=== PATIENT | female | born 1935 | race Caucasian/White ===

== ENCOUNTER 2017-04-28 00:44 | Emergency (ER) | payer MEDICARE ==
[2017-04-28] MEDS ORDERED: Fluorescein Opthalmic Strip ONE (01:37)
[2017-04-28 02:07] LABS: Band 1 % (5-11); Hemoglobin 14.8 g/dL (12.0-16.0); Lymphocytes 41 % (21-51); MDiff Complete? YES; Mean Corpuscular HGB CONC 33.5 g/dL (32.0-36.0); Mean Corpuscular Hemoglobin 32.1 pg (27.0-31.0); Mean Corpuscular Volume 95.8 fl (81.0-99.0); Mean Platelet Volume 7.9 fL (7.4-10.4); Monocytes 5 % (0-10); Neutrophil 52 % (42-75); PLT Morphology Comment Appears Adequate; Platelet Count 130 thou/uL (130-400); RBC Distribution Width 13.4 % (11.5-14.5); Red Blood Cell (RBC) Count 4.61 mill/uL (4.20-5.40); White Blood Cell (WBC) Count 6.6 thou/uL (4.8-10.8)
[2017-04-28 02:09] LABS: ALT (SGPT) 14 U/L (8-55); AST (SGOT) 30 U/L (5-34); Albumin 3.7 g/dL (3.4-4.8); Alkaline Phosphatase 55 U/L (40-150); Anion Gap 14 mmol/L (10-20); BUN (Urea Nitrogen) 28 mg/dL (9.8-20.1); Bilirubin, Total 0.5 mg/dL (0.2-1.2); CK (CPK) 41 U/L (29-168); Calc. Creatinine Clearance 0 mL/min (70-130); Calcium 9.2 mg/dL (7.8-10.44); Carbon Dioxide 24 mmol/L (23-31); Chloride 100 mmol/L (98-107); Estimated GFR-MDRD 27; Globulin 3.1 g/dL (2.4-3.5); Glucose 126 mg/dL (83-110); Potassium 4.2 mmol/L (3.5-5.1); Protein, Total 6.8 g/dL (6.0-8.3); Sodium 134 mmol/L (136-145)
[2017-04-28 02:12] LABS: CKMB 1.5 ng/mL (0-6.6); Troponin I 0.013 ng/mL (< 0.028)
[2017-04-28] MEDS ORDERED: Diazepam 10 MG/2 ML SYRINGE ONE ×2 (02:56)
[2017-04-28 03:01] LABS: Bilirubin Negative (Negative); Blood, Urine Negative (Negative); Clarity CLEAR (Clear); Glucose, Urine (Dipstick) Negative (Negative); Leukocyte Trace (Negative); Nitrite Negative (Negative); Protein, Urine (Dipstick) Trace mg/dL (Neg-Trace); Specific Gravity, Urine 1.013 (1.002-1.036); Urobilinogen 0.2 mg/dL (0.2-1.0); pH, Urine 5.5 (5.0-9.0)
[2017-04-28 03:04] LABS: Bacteria/HPF None Seen HPF (None Seen); Hyaline Casts/LPF 4-6 HYALINE CAST LPF (0-3 Hyaline); Pathc Cast-AUWi Flag 0.94 (0-2.49); RBC/HPF 0-3 HPF (0-3); Squamous Epithelial 0-3 HPF (0-3)
== END 2017-04-28 04:53 | disposition home or self-care (01) ==
LOC: ERS 00:44
DX: B02.9 Zoster without complications (principal); R42 Dizziness and giddiness; I48.91 Unspecified atrial fibrillation; E78.5 Hyperlipidemia, unspecified; Z79.899 Other long term (current) drug therapy
CPT/HCPCS: 80053; 81003; 81015; 82550; 82553; 84484; 85025; 93005; 96361; 96374; J3360

== ENCOUNTER 2020-01-15 11:05 | Outpatient (CLI) | payer MEDICARE ==
--- NOTE | 2020-01-15 11:29 | MMO ---
Bilateral MAMMO Bilat Screen [facility]. CLINICAL HISTORY: Patient is 84 years old and is seen for screening. The patient has no family history of breast cancer. The patient has no personal history of cancer. VIEWS: The views performed were: bilateral craniocaudal with tomosynthesis and bilateral mediolateral oblique with tomosynthesis. FILMS COMPARED: The present examination has been compared to prior imaging studies performed at [facility] on 12/21/2013, and at [facility] on 01/22/2015. This study has been interpreted with the assistance of computer-aided detection. MAMMOGRAM FINDINGS: There are scattered fibroglandular densities. Benign calcifications are noted bilaterally. There are no suspicious masses, suspicious calcifications, or new areas of architectural distortion. IMPRESSION: THERE IS NO MAMMOGRAPHIC EVIDENCE OF MALIGNANCY. A ROUTINE FOLLOW-UP MAMMOGRAM IN 1 YEAR IS RECOMMENDED. THE RESULTS OF THIS EXAM WERE SENT TO THE PATIENT. ACR BI-RADS Category 2 - Benign finding MAMMOGRAPHY NOTE: 1. A negative mammogram report should not delay a biopsy if a dominant of clinically suspicious mass is present. 2. Approximately 10% to 15% of breast cancers are not detected by mammography. 3. Adenosis and dense breasts may obscure an underlying neoplasm. Reported by: ZABRINA OLGUIN MD Electonically Signed: [id number]
== END 2020-01-15 11:06 | disposition home or self-care (01) ==
LOC: BICMAMMO 11:05
PROVIDERS: ATTEND Physician Assistant
DX: Z12.31 Encounter for screening mammogram for malignant neoplasm of breast (principal)
CPT/HCPCS: 77063; 77067

== ENCOUNTER 2020-08-09 17:07 | Inpatient (IN) | payer MEDICARE ==
[2020-08-09] MEDS ORDERED: Boostrix 0.5 ML (Tdap) VIAL ONE (17:42)
[2020-08-09 18:20] LABS: #Basophils 0.1 thou/uL (0.0-0.2); #Eosinphils 0.2 thou/uL (0.0-0.7); #Lymphocytes 2.2 thou/uL (1.20-3.40); #Monocytes 0.9 thou/uL (0.11-0.59); #Neutrophils 7.9 thou/uL (1.40-6.50); %Basophils 0.5 % (0.0-1.0); %Eosinophils 2.1 % (0.0-10.0); %Lymphocytes 19.7 % (21.0-51.0); %Monocytes 8.1 % (0.0-10.0); %Neutrophils 69.6 % (42.0-75.0); Hemoglobin 13.9 g/dL (12.0-16.0); Mean Corpuscular HGB CONC 34.4 g/dL (32.0-36.0); Mean Corpuscular Hemoglobin 33.8 pg (27.0-31.0); Mean Corpuscular Volume 98.2 fL (78.0-98.0); Mean Platelet Volume 8.5 fL (7.4-10.4); Platelet Count 134 thou/uL (130-400); RBC Distribution Width 12.6 % (11.5-14.5); White Blood Cell (WBC) Count 11.4 thou/uL (4.8-10.8)
[2020-08-09] MEDS ORDERED: Albuterol 200 PUFF (6.7GM INHALER) ONE (18:23)
[2020-08-09 18:32] LABS: ALT (SGPT) 16 U/L (8-55); AST (SGOT) 23 U/L (5-34); Albumin 3.8 g/dL (3.4-4.8); Alkaline Phosphatase 77 U/L (40-110); Anion Gap 13 mmol/L (10-20); BUN (Urea Nitrogen) 16 mg/dL (9.8-20.1); Bilirubin, Total 0.5 mg/dL (0.2-1.2); Calc. Creatinine Clearance 0 mL/min (70-130); Calcium 8.7 mg/dL (7.8-10.44); Carbon Dioxide 25 mmol/L (23-31); Chloride 106 mmol/L (98-107); Globulin 3.4 g/dL (2.4-3.5); Glucose 91 mg/dL (83-110); Protein, Total 7.2 g/dL (5.8-8.1); Sodium 140 mmol/L (136-145)
[2020-08-09] MEDS ORDERED: Fentanyl 100 MCG/2 ML VIAL ONE ×2 (18:32→19:38)
[2020-08-09 18:36] LABS: Troponin I Less than 0.010 ng/mL (< 0.028)
[2020-08-09] MEDS ORDERED: Ondansetron PF 4 MG/2 ML Vial IVP PRN (19:18)
[2020-08-09] MEDS ORDERED: Morphine 2 MG/ML VIAL SLOW IVP PRN (19:18)
[2020-08-09] MEDS ORDERED: Dextrose 50% Abboject 50 ML SYRINGE SLOW IVP PRN ×2 (19:18→20:53)
[2020-08-09] MEDS ORDERED: Dextrose 5% in Water 1,000 ML IV PRN ×2 (19:18→20:53)
[2020-08-09] MEDS ORDERED: traMADol HCl 50 MG TAB PO PRN (19:21)
[2020-08-09] MEDS ORDERED: TETANUS, DIPHTHERIA TOX,ADULT (TDVAX) 0.5 ML VIAL IM ONE (19:21)
[2020-08-09] MEDS ORDERED: Phenylephrine 10 MG/ML VIAL ONE (19:38)
[2020-08-09] MEDS ORDERED: Clindamycin/D5W 900 mg/50 ml Premix Bag ONE (19:49)
[2020-08-09] MEDS ORDERED: Levofloxacin 500 mg/D5W 100 ml Premix Bag ONE ×2 (19:56)
[2020-08-09] MEDS ORDERED: Ketamine 50 MG/ML (10ML VIAL) ONE (20:09)
[2020-08-09] MEDS ORDERED: Midazolam HCl 2 mg/2 ml Vial ONE (20:16)
[2020-08-09] MEDS ORDERED: Ondansetron PF 4 MG/2 ML Vial ONE (20:17)
[2020-08-09] MEDS ORDERED: Lidocaine 1% PF 5 ML VIAL ONE (20:17)
[2020-08-09] MEDS ORDERED: PROPOFOL 200 MG/20 ML VIAL ONE (20:17)
[2020-08-09] MEDS ORDERED: Bupivacaine 0.25% HCL 30 ML VIAL ONE (20:55)
[2020-08-09] MEDS ORDERED: EPINEPHrine 1 MG/ML AMP ONE (20:55)
[2020-08-09] MEDS ORDERED: Promethazine HCl 25 MG/ML VIAL IM PRN (22:37)
[2020-08-09] MEDS ORDERED: Promethazine HCl 25 MG/ML VIAL IVPB PRN (22:37)
[2020-08-09] MEDS ORDERED: Ondansetron HCl/PF 4 MG/2 ML Vial IVP PRN (22:37)
[2020-08-09] MEDS: Gabapentin 100 MG CAP PO SCH (23:46)
[2020-08-09] MEDS: Cyclobenzaprine 10 MG TAB PO PRN (23:53)
[2020-08-09] MEDS: Acetaminophen 500 MG TAB PO SCH (23:53)
[2020-08-10 00:18] VITALS: BMI 43.4
[2020-08-10] MEDS: Famotidine/PF 20 mg/2ml Vial SLOW IVP SCH ×2 (01:38→08:26)
[2020-08-10 05:34] LABS: #Eosinphils 0.1 thou/uL (0.0-0.7); #Lymphocytes 1.7 thou/uL (1.20-3.40); #Neutrophils 6.7 thou/uL (1.40-6.50); %Basophils 0.4 % (0.0-1.0); %Eosinophils 1.1 % (0.0-10.0); %Lymphocytes 18.2 % (21.0-51.0); %Monocytes 10.7 % (0.0-10.0); %Neutrophils 69.6 % (42.0-75.0); Hemoglobin 12.8 g/dL (12.0-16.0); Mean Corpuscular HGB CONC 32.2 g/dL (32.0-36.0); Mean Corpuscular Hemoglobin 31.9 pg (27.0-31.0); Mean Corpuscular Volume 99.2 fL (78.0-98.0); Mean Platelet Volume 9.8 fL (7.4-10.4); Platelet Count 136 thou/uL (130-400); RBC Distribution Width 12.6 % (11.5-14.5); Red Blood Cell (RBC) Count 4.02 mill/uL (4.20-5.40); White Blood Cell (WBC) Count 9.6 thou/uL (4.8-10.8)
[2020-08-10 05:46] LABS: INR-International Normal Ratio 1.1; Prothrombin Time 14.3 sec (12.0-14.7)
[2020-08-10 05:47] LABS: PTT 27.3 sec (22.9-36.1)
[2020-08-10] MEDS: Acetaminophen/Codeine 30-300mg Tablet PO PRN ×3 (05:48→14:13)
[2020-08-10] MEDS: Clindamycin/D5W 900 MG in Premix Bag 1 BAG IVPB SCH ×2 (05:48→11:11)
[2020-08-10] MEDS: Acetaminophen 500 MG TAB PO SCH ×2 (06:04→11:18)
[2020-08-10 07:12] LABS: Anion Gap 12 mmol/L (10-20); BUN (Urea Nitrogen) 15 mg/dL (9.8-20.1); Calc. Creatinine Clearance 106 mL/min (70-130); Calcium 8.3 mg/dL (7.8-10.44); Carbon Dioxide 27 mmol/L (23-31); Chloride 103 mmol/L (98-107); Glucose 119 mg/dL (83-110); Potassium 4.1 mmol/L (3.5-5.1); Sodium 138 mmol/L (136-145)
[2020-08-10 07:38] VITALS: TEMP 98.2
[2020-08-10] MEDS: Gabapentin 300 MG CAP PO SCH ×2 (08:29→14:12)
[2020-08-10] MEDS: Gabapentin 100 MG CAP PO SCH ×2 (08:31→14:11)
[2020-08-10] MEDS ORDERED: Non-Formulary Item 1 EACH (Sotalol Hcl [Sotalol] 120 MG Tablet) PO SCH (09:00)
[2020-08-10] MEDS ORDERED: Sotalol HCl 80 MG TAB PO SCH (09:00)
[2020-08-10] MEDS ORDERED: Gabapentin 300 MG CAP PO SCH (09:00)
[2020-08-10] MEDS ORDERED: cycloSPORINE 0.05% Ophthalmic Droperette EA EYE SCH ×2 (09:00)
[2020-08-10] MEDS ORDERED: Polyethylene Glycol 3350 17 GM Packet PO SCH (09:00)
[2020-08-10] MEDS ORDERED: Losartan 25 MG TAB PO SCH (09:00)
[2020-08-10] MEDS ORDERED: Cholecalciferol 1,000 UNITS (25 MCG) TAB PO SCH ×2 (09:00)
[2020-08-10] MEDS ORDERED: Non-Formulary Item 1 EACH (Losartan Potassium [Cozaar] 1 TAB) PO SCH (09:00)
[2020-08-10] MEDS ORDERED: Apixaban 2.5 MG TAB PO SCH ×2 (09:00)
[2020-08-10] MEDS ORDERED: Non-Formulary Item 1 EACH (Losartan Potassium [Cozaar] 50 MG Tablet) PO SCH (09:00)
[2020-08-10] MEDS: Cyclobenzaprine 10 MG TAB PO PRN (11:30)
[2020-08-10 11:36] VITALS: BP 102/67
[2020-08-10] MEDS ORDERED: Atorvastatin Calcium 40 MG TAB PO SCH ×2 (21:00)
== END 2020-08-10 15:06 | disposition home or self-care (01) | DRG 512 ==
LOC: ERS 17:07 → SURG A 20:53
PROVIDERS: ADMIT Surgery; ATTEND Surgery
PROC: 0PSH04Z Reposition Right Radius with Internal Fixation Device, Open Approach (ICD-10-PCS; principal; 2020-08-09)
PROC: 0PSK04Z Reposition Right Ulna with Internal Fixation Device, Open Approach (ICD-10-PCS; 2020-08-09)
DX: S52.591B Other fractures of lower end of right radius, initial encounter for open fracture type I or II (principal); S52.691B Other fracture of lower end of right ulna, initial encounter for open fracture type I or II; I10 Essential (primary) hypertension; I48.91 Unspecified atrial fibrillation; E78.5 Hyperlipidemia, unspecified; S01.112A Laceration without foreign body of left eyelid and periocular area, initial encounter; I25.10 Atherosclerotic heart disease of native coronary artery without angina pectoris; K21.9 Gastro-esophageal reflux disease without esophagitis; W18.30XA Fall on same level, unspecified, initial encounter; Y93.G1 Activity, food preparation and clean up; Y92.009 Unspecified place in unspecified non-institutional (private) residence as the place of occurrence of the external cause; Z88.0 Allergy status to penicillin; Z79.01 Long term (current) use of anticoagulants; Z79.899 Other long term (current) drug therapy; Z95.0 Presence of cardiac pacemaker
CPT/HCPCS: 36415; 70450; 76000; 80048; 80053; 84484; 85025; 85379; 85610; 85730; 90471; 90715; 93005; 93010; 96365; 96366; 96375; C1713; J0171; J0690; J1956; J2250; J2370; J2405; J2704; J3010; J3490; S0020; S0028

== ENCOUNTER 2020-12-11 15:15 | Inpatient (IN) | payer BC, MEDICARE ==
[~2020-12-11 15:15] MED LIST: Iopamidol-370 76% 500 ML 1 ML ONE
[2020-12-11 16:09] LABS: #Lymphocytes 1.4 thou/uL (1.20-3.40); #Monocytes 1.4 thou/uL (0.11-0.59); #Neutrophils 15.2 thou/uL (1.40-6.50); %Basophils 0.2 % (0.0-1.0); %Eosinophils 0.2 % (0.0-10.0); %Lymphocytes 7.9 % (21.0-51.0); %Monocytes 7.8 % (0.0-10.0); Hemoglobin 13.8 g/dL (12.0-16.0); Mean Corpuscular HGB CONC 33.3 g/dL (32.0-36.0); Mean Corpuscular Hemoglobin 32.9 pg (27.0-31.0); Mean Corpuscular Volume 98.7 fL (78.0-98.0); Mean Platelet Volume 8.9 fL (7.4-10.4); Platelet Count 141 thou/uL (130-400); RBC Distribution Width 13.5 % (11.5-14.5); White Blood Cell (WBC) Count 18.1 thou/uL (4.8-10.8)
[2020-12-11] MEDS ORDERED: Clindamycin/D5W 600 mg/50 ml Premix Bag ONE (16:20)
[2020-12-11 16:28] LABS: ALT (SGPT) 21 U/L (8-55); AST (SGOT) 23 U/L (5-34); Albumin 3.8 g/dL (3.4-4.8); Alkaline Phosphatase 83 U/L (40-110); Anion Gap 12 mmol/L (10-20); BUN (Urea Nitrogen) 18 mg/dL (9.8-20.1); Bilirubin, Total 1.1 mg/dL (0.2-1.2); Calc. Creatinine Clearance 0 mL/min (70-130); Calcium 9.4 mg/dL (7.8-10.44); Carbon Dioxide 27 mmol/L (23-31); Chloride 97 mmol/L (98-107); Globulin 3.9 g/dL (2.4-3.5); Glucose 116 mg/dL (83-110); Potassium 3.8 mmol/L (3.5-5.1); Protein, Total 7.7 g/dL (5.8-8.1); Sodium 132 mmol/L (136-145)
[2020-12-11] MEDS ORDERED: Vancomycin 1.5 GRAM/300 ML BAG 1.5 GM in Premix Bag 1 BAG IVPB SCH (17:00)
[2020-12-11] MEDS ORDERED: Dexamethasone 10 MG/ML VIAL ONE (18:16)
[2020-12-11] MEDS ORDERED: Acetaminophen 325 MG TAB PO PRN (19:09)
[2020-12-11] MEDS ORDERED: Lactated Ringer's 1,000 ML IV SCH (20:30)
[2020-12-11] MEDS ORDERED: Acetaminophen 500 MG TAB PO PRN (21:21)
[2020-12-11] MEDS ORDERED: Ibuprofen 600 MG TAB PO PRN (21:22)
[2020-12-11 21:34] VITALS: BMI 32.9
[2020-12-11] MEDS ORDERED: Morphine 4 MG/ML VIAL SLOW IVP PRN (21:44)
[2020-12-11] MEDS: Sodium Chloride 0.9% 1,000 ML IV SCH (22:16)
[2020-12-11] MEDS: metroNIDAZOLE 500 MG in Premix Bag 1 BAG IVPB SCH (22:32)
[2020-12-11] MEDS ORDERED: HYDROcodone/Acetaminophen 5/325 mg Tablet PO PRN (22:43)
[2020-12-11] MEDS ORDERED: Melatonin 3 MG TAB PO PRN (22:44)
[2020-12-11] MEDS: cefOXitin 2 GM in Sodium Chloride 0.9% 100 ML IVPB SCH (23:35)
[2020-12-11] MEDS: Dexamethasone 4 mg/ml Vial SLOW IVP SCH (23:36)
[2020-12-11] MEDS ORDERED: FLU VACC QS2021-22(65YR UP)/PF 240 MCG/0.7 ML SYRINGE IM ONE (23:45)
[2020-12-12] MEDS ORDERED: Cyclobenzaprine 10 MG TAB PO PRN (00:12)
[2020-12-12] MEDS ORDERED: Albuterol 200 PUFF (6.7GM INHALER) INH PRN (00:23)
[2020-12-12] MEDS: metroNIDAZOLE 500 MG in Premix Bag 1 BAG IVPB SCH (05:07)
[2020-12-12] MEDS: Dexamethasone 4 mg/ml Vial SLOW IVP SCH (05:07)
[2020-12-12] MEDS: Sodium Chloride 0.9% 1,000 ML IV SCH (05:28)
[2020-12-12 07:37] LABS: Anion Gap 17 mmol/L (10-20); BUN (Urea Nitrogen) 18 mg/dL (9.8-20.1); Calc. Creatinine Clearance 74 mL/min (70-130); Calcium 8.3 mg/dL (7.8-10.44); Carbon Dioxide 19 mmol/L (23-31); Chloride 101 mmol/L (98-107); Glucose 141 mg/dL (83-110); Potassium 4.5 mmol/L (3.5-5.1); Sodium 132 mmol/L (136-145)
[2020-12-12 08:36] LABS: Band 21 % (5-11); Hemoglobin 12.6 g/dL (12.0-16.0); Lymphocytes 8 % (21-51); MDiff Complete? YES; Mean Corpuscular Hemoglobin 32.5 pg (27.0-31.0); Mean Corpuscular Volume 98.4 fL (78.0-98.0); Mean Platelet Volume 8.8 fL (7.4-10.4); Monocytes 4 % (0-10); Neutrophil 67 % (42-75); Platelet Count 146 thou/uL (130-400); RBC Distribution Width 13.6 % (11.5-14.5); RBC Morphology Normal; Red Blood Cell (RBC) Count 3.89 mill/uL (4.20-5.40); White Blood Cell (WBC) Count 20.6 thou/uL (4.8-10.8)
[2020-12-12] MEDS: Losartan 25 MG TAB PO SCH ×2 (08:59→20:09)
[2020-12-12] MEDS: cefOXitin 2 GM in Sodium Chloride 0.9% 100 ML IVPB SCH ×3 (08:59→23:45)
[2020-12-12] MEDS: Sotalol HCl 80 MG TAB PO SCH ×2 (08:59→20:11)
[2020-12-12] MEDS: Apixaban 2.5 MG TAB PO SCH ×2 (09:00→20:11)
[2020-12-12] MEDS: Cholecalciferol 1,000 UNITS (25 MCG) TAB PO SCH (09:00)
[2020-12-12] MEDS: Gabapentin 300 MG CAP PO SCH ×3 (09:01→20:11)
[2020-12-12] MEDS ORDERED: Dexamethasone 4 MG TAB PO SCH (09:15)
[2020-12-12] MEDS: Dexamethasone 4 MG TAB PO SCH ×3 (09:48→21:02)
[2020-12-12 12:09] LABS: SARS-CoV-2 PCR by NAA Not Detected (NotDetected)
[2020-12-12] MEDS ORDERED: Polyethylene Glycol 3350 17 GM Packet PO PRN (14:13)
[2020-12-12] MEDS ORDERED: VANCOMYCIN 1.25 GM/250 ML BAG 1.25 GM in Premix Bag 1 BAG IVPB SCH (18:00)
[2020-12-12] MEDS: Atorvastatin Calcium 40 MG TAB PO SCH (20:10)
[2020-12-12] MEDS: Docusate 100 MG CAP PO PRN (21:02)
[2020-12-13] MEDS: Dexamethasone 4 MG TAB PO SCH ×4 (03:11→21:48)
[2020-12-13 07:26] LABS: #Lymphocytes 1.1 thou/uL (1.20-3.40); #Monocytes 0.5 thou/uL (0.11-0.59); #Neutrophils 13.2 thou/uL (1.40-6.50); %Basophils 0.1 % (0.0-1.0); %Lymphocytes 7.3 % (21.0-51.0); %Monocytes 3.7 % (0.0-10.0); Hemoglobin 12.7 g/dL (12.0-16.0); Mean Corpuscular HGB CONC 33.4 g/dL (32.0-36.0); Mean Corpuscular Hemoglobin 32.6 pg (27.0-31.0); Mean Corpuscular Volume 97.7 fL (78.0-98.0); Mean Platelet Volume 8.8 fL (7.4-10.4); Platelet Count 180 thou/uL (130-400); RBC Distribution Width 13.6 % (11.5-14.5); White Blood Cell (WBC) Count 14.8 thou/uL (4.8-10.8)
[2020-12-13 07:47] LABS: Anion Gap 15 mmol/L (10-20); BUN (Urea Nitrogen) 22 mg/dL (9.8-20.1); Calc. Creatinine Clearance 73 mL/min (70-130); Carbon Dioxide 23 mmol/L (23-31); Chloride 100 mmol/L (98-107); Sodium 134 mmol/L (136-145)
[2020-12-13 07:48] LABS: Calcium 8.5 mg/dL (7.8-10.44); Glucose 151 mg/dL (83-110)
[2020-12-13] MEDS: cefOXitin 2 GM in Sodium Chloride 0.9% 100 ML IVPB SCH ×3 (08:27→23:58)
[2020-12-13] MEDS: Apixaban 2.5 MG TAB PO SCH ×2 (08:27→20:34)
[2020-12-13] MEDS: Gabapentin 300 MG CAP PO SCH ×3 (08:30→20:26)
[2020-12-13] MEDS: Cholecalciferol 1,000 UNITS (25 MCG) TAB PO SCH (08:30)
[2020-12-13] MEDS: Losartan 25 MG TAB PO SCH ×2 (08:31→20:33)
[2020-12-13] MEDS: Sotalol HCl 80 MG TAB PO SCH ×2 (08:32→20:29)
[2020-12-13] MEDS: cycloSPORINE 0.05% Ophthalmic Droperette EA EYE SCH ×2 (08:35→20:26)
[2020-12-13] MEDS: Phenazopyridine HCl 100 MG TAB PO SCH ×2 (12:09→17:47)
[2020-12-13] MEDS ORDERED: Phenazopyridine HCl 97.5 MG TABLET PO SCH (13:00)
[2020-12-13] MEDS ORDERED: Vancomycin HCl 1.25 GM in Sodium Chloride 0.9% 250 ML 250 ML IVPB SCH (18:00)
[2020-12-13 18:37] LABS: Vancomycin, Trough 6.2 ug/mL
[2020-12-13] MEDS: Atorvastatin Calcium 40 MG TAB PO SCH (20:34)
[2020-12-13] MEDS: Docusate 100 MG CAP PO PRN (21:32)
[2020-12-14] MEDS: Dexamethasone 4 MG TAB PO SCH ×4 (04:06→22:42)
[2020-12-14] MEDS: Vancomycin HCl 750 MG in Sodium Chloride 0.9% 250 ML 250 ML IVPB SCH ×2 (05:27→17:35)
[2020-12-14] MEDS: cycloSPORINE 0.05% Ophthalmic Droperette EA EYE SCH ×2 (08:45→20:53)
[2020-12-14] MEDS: Phenazopyridine HCl 100 MG TAB PO SCH ×4 (08:46→17:39)
[2020-12-14] MEDS: Sotalol HCl 80 MG TAB PO SCH ×2 (08:48→22:43)
[2020-12-14] MEDS: cefOXitin 2 GM in Sodium Chloride 0.9% 100 ML IVPB SCH ×3 (08:48→22:46)
[2020-12-14] MEDS: Cholecalciferol 1,000 UNITS (25 MCG) TAB PO SCH (08:49)
[2020-12-14] MEDS: Gabapentin 300 MG CAP PO SCH ×3 (08:49→20:51)
[2020-12-14] MEDS: Losartan 25 MG TAB PO SCH ×2 (08:49→20:51)
[2020-12-14] MEDS: Apixaban 2.5 MG TAB PO SCH ×2 (08:49→20:52)
[2020-12-14 08:59] LABS: #Lymphocytes 0.9 thou/uL (1.20-3.40); #Monocytes 0.3 thou/uL (0.11-0.59); #Neutrophils 8.1 thou/uL (1.40-6.50); %Basophils 0.3 % (0.0-1.0); %Eosinophils 0.1 % (0.0-10.0); %Lymphocytes 9.4 % (21.0-51.0); %Monocytes 3.6 % (0.0-10.0); %Neutrophils 86.5 % (42.0-75.0); Hemoglobin 14.1 g/dL (12.0-16.0); Mean Corpuscular HGB CONC 32.9 g/dL (32.0-36.0); Mean Corpuscular Volume 97.2 fL (78.0-98.0); Mean Platelet Volume 8.8 fL (7.4-10.4); Platelet Count 202 thou/uL (130-400); RBC Distribution Width 13.6 % (11.5-14.5); Red Blood Cell (RBC) Count 4.42 mill/uL (4.20-5.40); White Blood Cell (WBC) Count 9.3 thou/uL (4.8-10.8)
[2020-12-14 09:16] LABS: Anion Gap 15 mmol/L (10-20); BUN (Urea Nitrogen) 31 mg/dL (9.8-20.1); Calc. Creatinine Clearance 76 mL/min (70-130); Calcium 8.3 mg/dL (7.8-10.44); Carbon Dioxide 19 mmol/L (23-31); Chloride 105 mmol/L (98-107); Glucose 176 mg/dL (83-110); Potassium 4.7 mmol/L (3.5-5.1); Sodium 134 mmol/L (136-145)
[2020-12-14] MEDS: Atorvastatin Calcium 40 MG TAB PO SCH (20:52)
[2020-12-15] MEDS: Dexamethasone 4 MG TAB PO SCH ×4 (05:27→23:46)
[2020-12-15] MEDS: Vancomycin HCl 750 MG in Sodium Chloride 0.9% 250 ML 250 ML IVPB SCH ×2 (05:28→18:36)
[2020-12-15] MEDS: Losartan 25 MG TAB PO SCH ×2 (08:09→20:19)
[2020-12-15] MEDS: Apixaban 2.5 MG TAB PO SCH ×2 (08:09→20:18)
[2020-12-15] MEDS: Cholecalciferol 1,000 UNITS (25 MCG) TAB PO SCH (08:09)
[2020-12-15] MEDS: Gabapentin 300 MG CAP PO SCH ×3 (08:09→20:17)
[2020-12-15] MEDS: Phenazopyridine HCl 100 MG TAB PO SCH ×3 (08:09→18:26)
[2020-12-15] MEDS: cefOXitin 2 GM in Sodium Chloride 0.9% 100 ML IVPB SCH ×2 (08:09→15:47)
[2020-12-15 09:03] LABS: #Lymphocytes 1.2 thou/uL (1.20-3.40); #Monocytes 0.7 thou/uL (0.11-0.59); #Neutrophils 7.3 thou/uL (1.40-6.50); %Basophils 0.2 % (0.0-1.0); %Eosinophils 0.1 % (0.0-10.0); %Lymphocytes 13.2 % (21.0-51.0); %Monocytes 7.3 % (0.0-10.0); %Neutrophils 79.2 % (42.0-75.0); Hemoglobin 13.2 g/dL (12.0-16.0); Mean Corpuscular HGB CONC 32.3 g/dL (32.0-36.0); Mean Corpuscular Hemoglobin 31.4 pg (27.0-31.0); Mean Corpuscular Volume 97.1 fL (78.0-98.0); Mean Platelet Volume 8.7 fL (7.4-10.4); Platelet Count 215 thou/uL (130-400); RBC Distribution Width 13.8 % (11.5-14.5); White Blood Cell (WBC) Count 9.2 thou/uL (4.8-10.8)
[2020-12-15 09:10] LABS: Vancomycin, Trough 24.6 ug/mL
[2020-12-15 09:25] LABS: Anion Gap 11 mmol/L (10-20); BUN (Urea Nitrogen) 30 mg/dL (9.8-20.1); Calc. Creatinine Clearance 78 mL/min (70-130); Calcium 8.2 mg/dL (7.8-10.44); Carbon Dioxide 26 mmol/L (23-31); Chloride 104 mmol/L (98-107); Glucose 113 mg/dL (83-110); Potassium 4.7 mmol/L (3.5-5.1); Sodium 136 mmol/L (136-145)
[2020-12-15] MEDS: cycloSPORINE 0.05% Ophthalmic Droperette EA EYE SCH ×2 (10:04→20:18)
[2020-12-15] MEDS: Sotalol HCl 80 MG TAB PO SCH ×2 (10:04→20:17)
[2020-12-15 18:33] LABS: Vancomycin, Random 13.8 ug/mL (See Comment)
[2020-12-15] MEDS: Atorvastatin Calcium 40 MG TAB PO SCH (20:18)
[2020-12-15] MEDS ORDERED: cefOXitin Sodium/Dextrose,Iso 2 GM in Premix Bag 1 BAG IVPB SCH (23:59)
[2020-12-16] MEDS: Dexamethasone 4 MG TAB PO SCH ×2 (05:10→08:23)
[2020-12-16] MEDS: Vancomycin HCl 750 MG in Sodium Chloride 0.9% 250 ML 250 ML IVPB SCH (05:23)
[2020-12-16 07:30] LABS: #Lymphocytes 1.2 thou/uL (1.20-3.40); #Monocytes 0.7 thou/uL (0.11-0.59); %Basophils 0.1 % (0.0-1.0); %Lymphocytes 13.5 % (21.0-51.0); %Monocytes 7.8 % (0.0-10.0); %Neutrophils 78.6 % (42.0-75.0); Hemoglobin 13.6 g/dL (12.0-16.0); Mean Corpuscular HGB CONC 33.1 g/dL (32.0-36.0); Mean Corpuscular Hemoglobin 31.8 pg (27.0-31.0); Mean Corpuscular Volume 96.1 fL (78.0-98.0); Mean Platelet Volume 8.5 fL (7.4-10.4); Platelet Count 223 thou/uL (130-400); RBC Distribution Width 13.6 % (11.5-14.5); Red Blood Cell (RBC) Count 4.28 mill/uL (4.20-5.40); White Blood Cell (WBC) Count 8.9 thou/uL (4.8-10.8)
[2020-12-16 07:43] LABS: Anion Gap 12 mmol/L (10-20); BUN (Urea Nitrogen) 28 mg/dL (9.8-20.1); Calc. Creatinine Clearance 80 mL/min (70-130); Calcium 7.8 mg/dL (7.8-10.44); Carbon Dioxide 22 mmol/L (23-31); Chloride 105 mmol/L (98-107); Glucose 118 mg/dL (83-110); Potassium 4.8 mmol/L (3.5-5.1); Sodium 134 mmol/L (136-145)
[2020-12-16] MEDS: Phenazopyridine HCl 100 MG TAB PO SCH ×2 (08:22→13:16)
[2020-12-16] MEDS: Sotalol HCl 80 MG TAB PO SCH (08:22)
[2020-12-16] MEDS: Apixaban 2.5 MG TAB PO SCH (08:23)
[2020-12-16] MEDS: Cholecalciferol 1,000 UNITS (25 MCG) TAB PO SCH (08:23)
[2020-12-16] MEDS: cycloSPORINE 0.05% Ophthalmic Droperette EA EYE SCH (08:23)
[2020-12-16] MEDS: Losartan 25 MG TAB PO SCH (08:23)
[2020-12-16] MEDS: Gabapentin 300 MG CAP PO SCH (08:23)
[2020-12-16 13:17] VITALS: BP 146/86; TEMP 97.9
[2020-12-16] MEDS ORDERED: Sulfameth/Trimethoprim DS 800-160mg TAB PO SCH (16:00)
== END 2020-12-16 14:47 | DRG 872 ==
LOC: ERS 15:15 → T4-A 18:39
PROVIDERS: ADMIT Student in an Organized Health Care Education/Training Program; ATTEND Student in an Organized Health Care Education/Training Program
DX: A41.9 Sepsis, unspecified organism (principal); E87.1 Hypo-osmolality and hyponatremia; K11.20 Sialoadenitis, unspecified; I10 Essential (primary) hypertension; E78.5 Hyperlipidemia, unspecified; I48.91 Unspecified atrial fibrillation; N32.81 Overactive bladder; J35.8 Other chronic diseases of tonsils and adenoids; I45.81 Long QT syndrome; I44.0 Atrioventricular block, first degree; Z20.822 Contact with and (suspected) exposure to COVID-19; K21.9 Gastro-esophageal reflux disease without esophagitis; Z96.651 Presence of right artificial knee joint; Z88.0 Allergy status to penicillin; Z79.01 Long term (current) use of anticoagulants; Z79.899 Other long term (current) drug therapy; Z95.0 Presence of cardiac pacemaker
CPT/HCPCS: 36415; 70491; 80048; 80053; 80202; 83605; 84145; 85025; 87040; 87077; 87149; 87186; 93005; 93010; 94760; 96365; 96367; 96375; J0694; J1100; J2270; J3370; J3490; J7050; J8540; Q9967; U0003; U0005